=== PATIENT | male | born 1975 | race Caucasian/White ===

== ENCOUNTER 2017-08-18 05:49 | Emergency (ER) | payer OTHER ==
[~2017-08-18] VITALS: Ht 172.7 cm; Wt 90.7 kg
== END 2017-08-18 06:50 | disposition home or self-care (01) ==
LOC: ED 05:49
DX: H00.012 Hordeolum externum right lower eyelid (principal); I10 Essential (primary) hypertension; F41.9 Anxiety disorder, unspecified; Z87.891 Personal history of nicotine dependence
CPT/HCPCS: 99282